=== PATIENT | male | born 1965 | race Caucasian/White ===

== ENCOUNTER 2023-07-24 06:38 | Emergency (ER) | payer SELFPAY ==
[~2023-07-24] VITALS: Ht 177.8 cm; Wt 79.4 kg
[2023-07-24 06:49] VITALS: BP 164/91; TEMP 98.1; O2SAT 98
[2023-07-24] MEDS ORDERED: IBUP-1955 PO (06:49)
[2023-07-24] MEDS ORDERED: PENI500T PO (06:49)
== END 2023-07-24 06:56 | disposition home or self-care (01) ==
LOC: ER 06:47
DX: K04.7 Periapical abscess without sinus (principal); K02.9 Dental caries, unspecified; K03.2 Erosion of teeth; Z79.899 Other long term (current) drug therapy

== ENCOUNTER 2024-05-18 21:10 | Inpatient (IN) | payer OTHER ==
[~2024-05-18] VITALS: Ht 180.3 cm; Wt 68.0 kg
[~2024-05-18 21:10] MED LIST: IBUP-1955 PO; PENI500T PO
[2024-05-18 21:55] LABS: BASOPHILS # (AUTO) 0.1 K/uL (0.0-0.2); BASOPHILS % (AUTO) 0.4 % (0.0-2.0); HEMATOCRIT 38 % (39-51); HEMOGLOBIN 12.5 g/dL (13.5-17.5); LYMPHOCYTES # (AUTO) 0.5 K/uL (0.8-4.8); LYMPHOCYTES % (AUTO) 2.5 % (20.0-44.0); MEAN CORPUSCULAR HEMOGLOBIN 29 PG (26.0-33.0); MEAN CORPUSCULAR HGB CONC 33 g/dl (31.0-36.0); MEAN CORPUSCULAR VOLUME 87 fL (80-96); MONOCYTES # (AUTO) 1.1 K/uL (0.1-1.30); MONOCYTES % (AUTO) 5.6 % (2.0-12.0); NEUTROPHILS # (AUTO) 18.5 K/uL (1.8-8.9); NEUTROPHILS % (AUTO) 91.5 % (43.0-81.0); PLATELET COUNT (AUTO) 555 K/uL (150-450); RED CELL DISTRIBUTION WIDTH 16.8 % (11.5-15.0); WHITE BLOOD COUNT (AUTO) 20.2 K/uL (4.3-11.0)
[2024-05-18] MEDS ORDERED: IOHEXOL-350 100 ML VIAL IV ONE (22:04)
[2024-05-18] MEDS ORDERED: IV NS 0.9% 250 ML IV ONE (22:04)
[2024-05-18 22:05] LABS: CALCIUM, SERUM 9.3 mg/dL (8.5-10.1); CARBON DIOXIDE 27 mmol/L (21-32); CHLORIDE 93 mmol/L (98-107); CREATININE 0.9 mg/dL (0.6-1.3); GLUCOSE 171 mg/dL (74-106); POTASSIUM 3.9 mmol/L (3.5-5.1); SODIUM SERUM 128 mmol/L (136-145); UREA NITROGEN, BLOOD 8 mg/dL (7-18)
[2024-05-18 22:16] LABS: INR 1.3 (0.91-1.10); PARTIAL THROMBOPLASTIN TIME 38.5 SEC (24.3-34.3); PROTHROMBIN TIME 13.2 SECS (9.2-11.1)
[2024-05-18] MEDS ORDERED: CEFEPIME 1 GM VIAL ONE (22:19)
[2024-05-18] MEDS ORDERED: VANCOMYCIN 1 GM /D5W 250 ML PB IV ONE (22:20)
[2024-05-18 22:28] LABS: ALBUMIN 2.1 g/dL (3.4-5.0); BILIRUBIN,DIRECT 0.2 mg/dL (0.0-0.2); BILIRUBIN,TOTAL 0.6 mg/dL (0.2-1.0); TOTAL PROTEIN, SERUM 7.9 g/dL (6.4-8.2)
[2024-05-18] MEDS: CEFEPIME 1 GM in IV D5W 50 ML IV ONE (22:30)
[2024-05-18] MEDS: VANCOMYCIN 1 GM in IV D5W 250 ML IV ONE (23:00)
[2024-05-18 23:52] LABS: ANISOCYTOSIS 1+; BAND % (MANUAL) 2 % (0.0-5.0); BASOPHILS % (MANUAL) 0 % (0.0-2.0); EOSINOPHILS % (MANUAL) 0 % (0-4); LYMPHOCYTES % (MANUAL) 3 % (16-48); MONOCYTES % (MANUAL) 4 % (0-11.0); NEUTROPHILS % (MANUAL) 91 (42-76); PLATELET ESTIMATE ADEQUATE
[2024-05-19] VITALS (15 sets, daily range): BP systolic 142–162; BP diastolic 89–97; TEMP 98–102; O2SAT 90–100
[2024-05-19] MEDS ORDERED: MAG HYDROX/AL HYDROX/SIMETH 30 ML UDC PO PRN (02:00)
[2024-05-19] MEDS ORDERED: MAGNESIUM HYDROXIDE 30 ML UDC PO PRN (02:00)
[2024-05-19] MEDS ORDERED: ACETAMINOPHEN 325 MG TABLET PO PRN (02:00)
[2024-05-19] MEDS ORDERED: Z GUARD REMEDY 4 OZ OINT TP PRN (02:00)
[2024-05-19] MEDS ORDERED: ONDANSETRON HCL/PF 4 MG/2 ML VIAL IVP PRN (02:00)
[2024-05-19] MEDS ORDERED: ZOLPIDEM TARTRATE 5 MG TABLET PO PRN (02:00)
[2024-05-19] MEDS ORDERED: MORPHINE SULFATE INJ 4 MG/ML DISP.SYRIN ONE (02:55)
[2024-05-19] MEDS: MORPHINE SULFATE INJ 2 MG/ML DISP.SYRIN IV ONE (02:59)
[2024-05-19] MEDS: ENOXAPARIN SODIUM 40 MG/0.4 ML DISP.SYRIN SQ SCH ×2 (04:22→08:08)
[2024-05-19] MEDS: PANTOPRAZOLE 40 MG TABLET.DR PO SCH (06:39)
[2024-05-19 06:50] LABS: BASOPHILS % (AUTO) 0.2 % (0.0-2.0); HEMATOCRIT 35 % (39-51); HEMOGLOBIN 11.7 g/dL (13.5-17.5); LYMPHOCYTES # (AUTO) 0.7 K/uL (0.8-4.8); LYMPHOCYTES % (AUTO) 3.1 % (20.0-44.0); MEAN CORPUSCULAR HEMOGLOBIN 29 PG (26.0-33.0); MEAN CORPUSCULAR HGB CONC 33 g/dl (31.0-36.0); MEAN CORPUSCULAR VOLUME 88 fL (80-96); MONOCYTES # (AUTO) 1.6 K/uL (0.1-1.30); MONOCYTES % (AUTO) 7.2 % (2.0-12.0); NEUTROPHILS # (AUTO) 19.3 K/uL (1.8-8.9); NEUTROPHILS % (AUTO) 89.5 % (43.0-81.0); PLATELET COUNT (AUTO) 481 K/uL (150-450); RED BLOOD CELL COUNT(AUTO) 4.04 MIL/uL (4.5-6.0); RED CELL DISTRIBUTION WIDTH 16.7 % (11.5-15.0); WHITE BLOOD COUNT (AUTO) 21.5 K/uL (4.3-11.0)
[2024-05-19 07:19] LABS: ALBUMIN 1.6 g/dL (3.4-5.0); BILIRUBIN,DIRECT 0.1 mg/dL (0.0-0.2); BILIRUBIN,TOTAL 0.4 mg/dL (0.2-1.0); CALCIUM, SERUM 9.2 mg/dL (8.5-10.1); CREATININE 0.7 mg/dL (0.6-1.3); MAGNESIUM 2.2 mg/dL (1.8-2.4); PHOSPHORUS 3.7 mg/dL (2.5-4.9); TOTAL PROTEIN, SERUM 7.1 g/dL (6.4-8.2)
[2024-05-19 07:30] LABS: THYROID STIMULATING HORMONE 2.25 uIU/mL (0.358-3.74)
[2024-05-19] MEDS ORDERED: ALBUTEROL FS 2.5 MG/0.5 ML VIAL.NEB NEB PRN (07:30)
[2024-05-19] MEDS ORDERED: ALBUTEROL FS 2.5 MG/0.5 ML VIAL.NEB NEB SCH (07:30)
[2024-05-19] MEDS ORDERED: LEVALBUTEROL HCL NEB 1.25 MG/0.5 ML VIAL.NEB NEB SCH (07:35)
[2024-05-19] MEDS: VANCOMYCIN 1 GM in IV D5W 250 ML IV SCH (08:08)
[2024-05-19] MEDS: GABAPENTIN 100 MG CAPSULE PO SCH (08:08)
[2024-05-19] MEDS: ALBUTEROL HALF STRENGTH 1.25 MG/3 ML VIAL.NEB NEB SCH (08:35)
[2024-05-19] MEDS: CEFEPIME 2 GM in IV D5W 100 ML IV SCH (09:13)
[2024-05-19] MEDS: POTASSIUM CHLORIDE 20 MEQ TAB.PRT.SR PO ONE (10:13)
[2024-05-19] MEDS: FUROSEMIDE 20 MG/2 ML VIAL IV ONE (10:15)
[2024-05-19] MEDS: VALSARTAN 80 MG TABLET PO SCH (10:17)
[2024-05-19] MEDS: MORPHINE SULFATE INJ 4 MG/ML DISP.SYRIN IV PRN (11:44)
[2024-05-19 12:39] LABS: URINE SODIUM, RANDOM 99 mmol/l (40-220)
[2024-05-20] VITALS (18 sets, daily range): BP systolic 124–143; BP diastolic 84–98; TEMP 97.5–99.9; O2SAT 93–98
[2024-05-20 08:09] LABS: CREATININE 0.8 mg/dL (0.6-1.3); POTASSIUM 3.7 mmol/L (3.5-5.1)
[2024-05-20 08:48] LABS: MAGNESIUM 2.3 mg/dL (1.8-2.4); PHOSPHORUS 4.6 mg/dL (2.5-4.9)
[2024-05-20 08:59] LABS: THYROID STIMULATING HORMONE 2.86 uIU/mL (0.358-3.74); URIC ACID 4.3 mg/dL (2.6-7.2)
[2024-05-20] MEDS: LORAZEPAM 0.5 MG TABLET PO PRN (14:28)
[2024-05-20] MEDS: VANCOMYCIN HCL 1.25 GM in IV D5W 250 ML IV SCH (16:15)
[2024-05-20 16:24] LABS: OSMOLALITY,URINE 247 mOS/kg (340-1090)
[2024-05-20 17:34] LABS: PROTEIN, BODY FLUID 5.2 G/DL
[2024-05-20 18:35] LABS: WBC, BODY FLUID 24114 /cu. mm. (0-200)
[2024-05-20 20:35] LABS: APPEARANCE,SPUN,BODY FLUID HAZY (CLEAR); TOTAL VOLUME,BODY FLUID 600 mL
[2024-05-20 20:39] LABS: POLYNUCLEAR, BODY FLUID 92 % (0-25)
[2024-05-21] VITALS (19 sets, daily range): BP systolic 110–143; BP diastolic 64–87; TEMP 98.4–99.3; O2SAT 91–98
[2024-05-21 07:13] LABS: CALCIUM, SERUM 8.5 mg/dL (8.5-10.1); CREATININE 0.7 mg/dL (0.6-1.3); POTASSIUM 3.6 mmol/L (3.5-5.1)
[2024-05-21 11:01] LABS: BASOPHILS # (AUTO) 0.2 K/uL (0.0-0.2); BASOPHILS % (AUTO) 0.8 % (0.0-2.0); HEMATOCRIT 35 % (39-51); HEMOGLOBIN 11.5 g/dL (13.5-17.5); LYMPHOCYTES # (AUTO) 0.8 K/uL (0.8-4.8); LYMPHOCYTES % (AUTO) 3.7 % (20.0-44.0); MEAN CORPUSCULAR HEMOGLOBIN 29 PG (26.0-33.0); MEAN CORPUSCULAR HGB CONC 33 g/dl (31.0-36.0); MEAN CORPUSCULAR VOLUME 88 fL (80-96); MONOCYTES # (AUTO) 1.2 K/uL (0.1-1.30); MONOCYTES % (AUTO) 5.9 % (2.0-12.0); NEUTROPHILS # (AUTO) 18.1 K/uL (1.8-8.9); NEUTROPHILS % (AUTO) 89.6 % (43.0-81.0); PLATELET COUNT (AUTO) 502 K/uL (150-450); RED CELL DISTRIBUTION WIDTH 16.5 % (11.5-15.0); WHITE BLOOD COUNT (AUTO) 20.2 K/uL (4.3-11.0)
[2024-05-21] MEDS: AZITHROMYCIN 250 MG TABLET PO ONE (16:51)
[2024-05-21 19:43] LABS: AMPHETAMINE, URINE NEGATIVE (NEGATIVE); BARBITURATE, URINE NEGATIVE (NEGATIVE); BENZODIAZEPINE, URINE NEGATIVE (NEGATIVE); COCCAINE, URINE NEGATIVE (NEGATIVE); PHENCYCLIDINE SCREEN,URINE NEGATIVE (NEGATIVE)
[2024-05-21 19:48] LABS: CANNABINOID, URINE POSITIVE (NEGATIVE); OPIATE, URINE POSITIVE (NEGATIVE)
[2024-05-21 22:05] LABS: APPEARANCE,URINE SLIGHTLY CLOUDY (CLEAR); BILIRUBIN,URINE NEGATIVE (NEGATIVE); BLOOD, URINE NEGATIVE Ery/uL (NEGATIVE); COLOR,URINE YELLOW (YELLOW); KETONES,URINE NEGATIVE (NEGATIVE); LEUKOCYTE ESTERASE ,URINE NEGATIVE (NEGATIVE); NITRITE, URINE NEGATIVE (NEGATIVE); PROTEIN,URINE 1+ mg/dl (NEGATIVE); UGLUCOSE NEGATIVE (NEGATIVE); UROBILINOGEN,URINE 0.2 EU/dL (0.2)
[2024-05-21 23:08] LABS: ADD URINE CULTURE NO; BACTERIA,URINE None seen /HPF (None Seen); MUCUS,URINE Moderate /LPF (None Seen); RBC,URINE NONE SEEN /HPF (0-2); SQUAMOUS EPITHELIAL CELL,UR None Seen /HPF (None Seen); WBC,URINE NONE SEEN /HPF (0-3)
[2024-05-22] VITALS (18 sets, daily range): BP systolic 119–131; BP diastolic 72–83; TEMP 97.7–99.3; O2SAT 91–97
[2024-05-22 03:15] LABS: BASOPHILS # (AUTO) 0.1 K/uL (0.0-0.2); BASOPHILS % (AUTO) 0.4 % (0.0-2.0); HEMATOCRIT 36 % (39-51); HEMOGLOBIN 11.8 g/dL (13.5-17.5); LYMPHOCYTES # (AUTO) 0.9 K/uL (0.8-4.8); LYMPHOCYTES % (AUTO) 4.2 % (20.0-44.0); MEAN CORPUSCULAR HEMOGLOBIN 29 PG (26.0-33.0); MEAN CORPUSCULAR HGB CONC 33 g/dl (31.0-36.0); MEAN CORPUSCULAR VOLUME 88 fL (80-96); MONOCYTES # (AUTO) 1.6 K/uL (0.1-1.30); MONOCYTES % (AUTO) 7.8 % (2.0-12.0); NEUTROPHILS # (AUTO) 17.8 K/uL (1.8-8.9); NEUTROPHILS % (AUTO) 87.6 % (43.0-81.0); PLATELET COUNT (AUTO) 539 K/uL (150-450); RED BLOOD CELL COUNT(AUTO) 4.04 MIL/uL (4.5-6.0); RED CELL DISTRIBUTION WIDTH 17.1 % (11.5-15.0); WHITE BLOOD COUNT (AUTO) 20.4 K/uL (4.3-11.0)
[2024-05-22 03:22] LABS: CALCIUM, SERUM 8.5 mg/dL (8.5-10.1); CREATININE 0.8 mg/dL (0.6-1.3); POTASSIUM 3.6 mmol/L (3.5-5.1)
[2024-05-22] MEDS: VANCOMYCIN 1 GM in IV D5W 250ml IV SCH (04:19)
[2024-05-22 05:46] LABS: LYMPHOCYTES % (MANUAL) 7 % (16-48); MONOCYTES % (MANUAL) 3 % (0-11.0); NEUTROPHILS % (MANUAL) 90 (42-76); PLATELET ESTIMATE INCREASED
[2024-05-22 05:47] LABS: ANISOCYTOSIS 1+
[2024-05-22] MEDS ORDERED: AZITHROMYCIN 250 MG TABLET PO SCH (13:00)
[2024-05-22] MEDS: METRONIDAZOLE 500MG/ NS 100ML 500 MG in PREMIX 1 EA IV SCH (14:20)
[2024-05-23] VITALS (15 sets, daily range): BP systolic 123–132; BP diastolic 79–82; TEMP 97.9–98.8; O2SAT 93–99
[2024-05-23 06:20] LABS: BASOPHILS # (AUTO) 0.1 K/uL (0.0-0.2); BASOPHILS % (AUTO) 0.6 % (0.0-2.0); EOSINOPHILS % (AUTO) 0.2 % (0.0-6.0); HEMATOCRIT 34 % (39-51); HEMOGLOBIN 11.5 g/dL (13.5-17.5); LYMPHOCYTES # (AUTO) 0.8 K/uL (0.8-4.8); LYMPHOCYTES % (AUTO) 5.1 % (20.0-44.0); MEAN CORPUSCULAR HEMOGLOBIN 30 PG (26.0-33.0); MEAN CORPUSCULAR HGB CONC 34 g/dl (31.0-36.0); MEAN CORPUSCULAR VOLUME 88 fL (80-96); MONOCYTES # (AUTO) 1.4 K/uL (0.1-1.30); MONOCYTES % (AUTO) 8.3 % (2.0-12.0); NEUTROPHILS # (AUTO) 14.1 K/uL (1.8-8.9); NEUTROPHILS % (AUTO) 85.8 % (43.0-81.0); PLATELET COUNT (AUTO) 583 K/uL (150-450); RED BLOOD CELL COUNT(AUTO) 3.84 MIL/uL (4.5-6.0); RED CELL DISTRIBUTION WIDTH 16.9 % (11.5-15.0); WHITE BLOOD COUNT (AUTO) 16.5 K/uL (4.3-11.0)
[2024-05-23 06:47] LABS: CALCIUM, SERUM 8.4 mg/dL (8.5-10.1); CREATININE 0.7 mg/dL (0.6-1.3); POTASSIUM 3.5 mmol/L (3.5-5.1)
[2024-05-23 18:15] LABS: HIV-1 p24 ANTIGEN NON REACTIVE (NONREACTIVE); HIV-1/2 ANTIBODY NON REACTIVE (NONREACTIVE)
== END 2024-05-23 16:10 | disposition left against medical advice (07) | DRG 137 ==
LOC: ER 21:13 → EDBD 05-19 02:41 → TELE 05-19 02:41 → MED 05-23 10:54
PROVIDERS: ADMIT Nurse Practitioner Acute Care; ATTEND Nurse Practitioner Acute Care
PROC: 0W993ZZ Drainage of Right Pleural Cavity, Percutaneous Approach (ICD-10-PCS; principal; 2024-05-20)
DX: J15.69 Pneumonia due to other Gram-negative bacteria (principal); J86.9 Pyothorax without fistula; I50.33 Acute on chronic diastolic (congestive) heart failure; E87.1 Hypo-osmolality and hyponatremia; D63.8 Anemia in other chronic diseases classified elsewhere; J90 Pleural effusion, not elsewhere classified; I11.0 Hypertensive heart disease with heart failure; E86.1 Hypovolemia; D75.839 Thrombocytosis, unspecified; R07.9 Chest pain, unspecified; K29.70 Gastritis, unspecified, without bleeding; Z87.891 Personal history of nicotine dependence; Z88.6 Allergy status to analgesic agent; D72.829 Elevated white blood cell count, unspecified; R73.9 Hyperglycemia, unspecified; Z20.822 Contact with and (suspected) exposure to COVID-19; F10.21 Alcohol dependence, in remission; R59.0 Localized enlarged lymph nodes; R74.8 Abnormal levels of other serum enzymes; D49.89 Neoplasm of unspecified behavior of other specified sites; J98.11 Atelectasis; K31.89 Other diseases of stomach and duodenum
CPT/HCPCS: 36415; 71045-TC; 80048-TC; 80076-TC; 80202-TC; 81001; 83605-TC; 83735-TC; 83880; 83935-TC; 84100-TC; 84300-TC; 84443-TC; 84484-TC; 84550-TC; 85025-TC; 85378-TC; 85730-TC; 86803; 86850-TC; 87040-TC; 87081-TC; 87102-TC; 87806; 89051-TC; 93307-TC; 94760-TC; 94762-TC; 94799-TC; A4216; A4223; G0378; G0480; J0692; J1650; J1940; J2270; J3370; J7040; J7050; J7060; Q9967

== ENCOUNTER 2025-05-25 19:17 | Emergency (ER) | payer OTHER ==
[~2025-05-25] VITALS: Ht 180.3 cm; Wt 86.2 kg
[2025-05-25] MEDS: KETOROLAC TROMETHAMINE 15 MG/ML VIAL IM ONE (20:28)
[2025-05-25] MEDS ORDERED: KETOROLAC TROMETHAMINE 15 MG/ML VIAL ONE (20:28)
[2025-05-25] MEDS ORDERED: MORPHINE SULFATE INJ 2 MG/ML DISP.SYRIN ONE (22:05)
[2025-05-25] MEDS: MORPHINE SULFATE INJ 4 MG/ML DISP.SYRIN IM ONE (22:06)
[2025-05-25 22:41] VITALS: BP 175/100; TEMP 98.5; O2SAT 96
== END 2025-05-25 22:42 | disposition home or self-care (01) ==
LOC: ER 19:28
DX: M10.9 Gout, unspecified (principal); I10 Essential (primary) hypertension; Z88.5 Allergy status to narcotic agent; Z88.6 Allergy status to analgesic agent; Z60.2 Problems related to living alone
CPT/HCPCS: 99284; 96372 ×2; J1885; J2270